=== PATIENT | female | born 1940 | race Caucasian/White ===

== ENCOUNTER → 2016-04-26 | Outpatient (CLI) | payer MEDICARE, OTHER | LOC: PCVCCLINIC 14:00 | PROVIDERS: ATTEND Internal Medicine Cardiovascular Disease | DX: I27.2 Other secondary pulmonary hypertension (principal); I42.9 Cardiomyopathy, unspecified; I50.9 Heart failure, unspecified; R06.00 Dyspnea, unspecified; R42 Dizziness and giddiness; I34.0 Nonrheumatic mitral (valve) insufficiency; E78.00 Pure hypercholesterolemia, unspecified; Z95.810 Presence of automatic (implantable) cardiac defibrillator | CPT/HCPCS: 80061; 93005; G0463 ==

== ENCOUNTER → 2016-07-10 | Outpatient (CLI) | payer MEDICARE, OTHER | END | disposition home or self-care (01) | LOC: PCVCIMAG 13:06 | PROVIDERS: ATTEND Internal Medicine Cardiovascular Disease | DX: I42.9 Cardiomyopathy, unspecified (principal); I50.9 Heart failure, unspecified; I10 Essential (primary) hypertension; R42 Dizziness and giddiness; E78.00 Pure hypercholesterolemia, unspecified; I34.0 Nonrheumatic mitral (valve) insufficiency; I42.1 Obstructive hypertrophic cardiomyopathy; I38 Endocarditis, valve unspecified; Z95.810 Presence of automatic (implantable) cardiac defibrillator | CPT/HCPCS: 93306; G0463 ==

== ENCOUNTER → 2016-11-20 | Outpatient (CLI) | payer MEDICARE, OTHER | END | disposition home or self-care (01) | LOC: PCVCCLINIC 16:16 | PROVIDERS: ATTEND Internal Medicine Cardiovascular Disease | DX: I42.1 Obstructive hypertrophic cardiomyopathy (principal); I11.0 Hypertensive heart disease with heart failure; I50.30 Unspecified diastolic (congestive) heart failure; I34.0 Nonrheumatic mitral (valve) insufficiency; E78.00 Pure hypercholesterolemia, unspecified; Z95.810 Presence of automatic (implantable) cardiac defibrillator; Z79.82 Long term (current) use of aspirin; Z88.8 Allergy status to other drugs, medicaments and biological substances | CPT/HCPCS: 80061; 93280; G0463 ==

== ENCOUNTER → 2017-01-25 | Outpatient (CLI) | payer MEDICARE, OTHER ==
--- NOTE | 2017-01-25 11:44 | PCVCIMAG ---
APPROVED REPORT Study performed: 01/25/2017 10:14:18 EXAM: Comprehensive 2D, Doppler, and color-flow Echocardiogram Patient Location: Echo lab Status: routine BSA: 1.98 HR: 60 bpmBP: 114/78 mmHg Rhythm: Pacemaker Other Information Study Quality: Fair Indications Congestive Heart Failure Dyspnea Pacemaker Cardiomyopathy Hypertension/HDD 2D Dimensions LVEF(%): 35.24 (>50%) IVSd: 9.26 (7-11mm)LVOT Diam: 20.56 (18-24mm) LVDd: 56.77 mm PWd: 10.28 (7-11mm)Ascending Ao: 32.13 (22-36mm) LVDs: 47.06 (25-40mm) Left Atrium: 42.82 (27-40mm) Aortic Root: 26.65 mm LV Single Plane 4CH: 61.71 % [place]'s LVEF: 35.24 % Volumes Left Atrial Volume (Systole) Single Plane 4CH: 176.27 mLSingle Plane 2CH: 65.40 mL Biplane LA Volume: 118.00 mLLA ESV Index: 60.00 mL/m2 Aortic Valve AoV Peak Marc.: 1.67 m/s AO Peak Gr.: 11.31 mmHgLVOT Max P.25 mmHg LVOT Mean P.13 mmHg LVOT Max V: 1.23 m/s LVOT Mean V: 0.95 m/s LVOT V1 VTI: 29.31 cm IKE Vmax: 2.46 cm2 AI Vmax: 3.37 m/sSV (LVOT): 97.23 mL AI [place]: 1.49 m/s2 AI PHT: 656.96 ms Mitral Valve E/A Ratio: 5.2 MV Decel. Time: 236.37 ms MV E Max Marc.: 1.83 m/s MV A Marc.: 0.35 m/s MV Max Marc.: 4.44 m/s MV Mean Mrac.: 3.32 m/s MV PHT: 62.78 ms MVA (PHT): 3.50 cm2 IVRT: 69.20 ms TDI E/Lateral E': 30.50E/Medial E': 30.50 Medial E' Marc.: 0.06 m/s Lateral E' Marc.: 0.06 m/s Pulmonary Valve PV Peak Marc.: 0.79 m/sPV Peak Gr.: 2.51 mmHg Tricuspid Valve TR Peak Marc.: 2.99 m/s TR Peak Gr.: 35.69 mmHg TV Vmax: 0.51 m/sPA Pressure: 46.00 mmHg Left Ventricle Left ventricle is borderline dilated. There is normal LV segmental wall motion. Borderline concentric left ventricular hypertrophy. Left ventricular systolic function is normal. LVEF is 60-65%. Grade I - abnormal relaxation pattern. Right Ventricle The right ventricle is normal size. The right ventricular systolic function is normal. Atria Left atrium is severely dilated. Right atrium is moderately dilated. Pacemaker lead is present in the right atrium. Aortic Valve Aortic valve is trileaflet. Mild aortic valve sclerosis. Moderate aortic regurgitation. There is no aortic valvular stenosis. Mitral Valve The mitral valve is normal in structure. Moderate to swevere mitral regurgitation. No evidence of mitral valve stenosis. Tricuspid Valve The tricuspid valve is normal in structure. Moderate tricuspid regurgitation with a PA pressure of 46-50 mmHg. Pulmonic Valve The pulmonary valve is normal in structure. Mild pulmonic regurgitation. Great Vessels The aortic root is normal in size. The ascending aorta is normal in size. IVC is dilated and collapses <50% with inspiration. Pericardium There is no pericardial effusion. There is no pleural effusion. <Conclusion> Left ventricle is borderline dilated. Borderline concentric left ventricular hypertrophy. LVEF is 60-65%. Grade I - abnormal relaxation pattern. The right ventricle is normal size. Left atrium is severely dilated. Right atrium is moderately dilated. Pacemaker lead is present in the right atrium. Aortic valve is trileaflet. Mild aortic valve sclerosis. There is no aortic valvular stenosis. Moderate to swevere mitral regurgitation. Moderate tricuspid regurgitation with a PA pressure of 46-50 mmHg. IVC is dilated and collapses <50% with inspiration. There is no pericardial effusion.
== END | disposition home or self-care (01) ==
LOC: PCVCIMAG 10:16
PROVIDERS: ATTEND Internal Medicine Cardiovascular Disease
DX: I08.3 Combined rheumatic disorders of mitral, aortic and tricuspid valves (principal); I42.2 Other hypertrophic cardiomyopathy; E78.5 Hyperlipidemia, unspecified; I11.0 Hypertensive heart disease with heart failure; I50.30 Unspecified diastolic (congestive) heart failure; Z95.810 Presence of automatic (implantable) cardiac defibrillator; Z79.82 Long term (current) use of aspirin; Z79.899 Other long term (current) drug therapy; Z88.8 Allergy status to other drugs, medicaments and biological substances
CPT/HCPCS: 80061; 93306; G0463

== ENCOUNTER → 2017-06-04 | Outpatient (CLI) | payer MEDICARE, OTHER | END | disposition home or self-care (01) | LOC: PCVCCLINIC 14:56 | DX: I10 Essential (primary) hypertension (principal); I42.9 Cardiomyopathy, unspecified; I34.0 Nonrheumatic mitral (valve) insufficiency; E78.00 Pure hypercholesterolemia, unspecified; Z95.810 Presence of automatic (implantable) cardiac defibrillator; Z79.899 Other long term (current) drug therapy; Z79.82 Long term (current) use of aspirin | CPT/HCPCS: 80061; 93005; G0463 ==

== ENCOUNTER → 2017-12-10 | Outpatient (CLI) | payer MEDICARE, OTHER ==
--- NOTE | 2017-12-10 15:00 | PCVCIMAG ---
APPROVED REPORT Study performed: 12/10/2017 13:06:09 EXAM: Comprehensive 2D, Doppler, and color-flow Echocardiogram Patient Location: Echo lab Status: routine BSA: 1.91 HR: 60 bpmBP: 98/60 mmHg Rhythm: NSR Other Information Study Quality: Adequate Risk Factors: Cardiac Risk Factors: HTN, Hyperlipidemia Indications Pulmonary Hypertension Cardiomyopathy AICD/Pacemaker Mitral Regurgitation 2D Dimensions LVEF(%): 70.00 (>50%) IVSd: 11.23 (7-11mm)LVOT Diam: 21.00 (18-24mm) LVDd: 46.14 mm PWd: 10.63 (7-11mm)Ascending Ao: 30.01 (22-36mm) LVDs: 26.50 (25-40mm) Left Atrium: 45.50 (27-40mm) Aortic Root: 28.21 mm LV Single Plane 4CH: 66.27 % LV Single Plane 2CH: 70.49 %[place]'s LVEF: 68.38 % Volumes Left Atrial Volume (Systole) Single Plane 4CH: 125.30 mLSingle Plane 2CH: 102.22 mL LA ESV Index: 62.00 mL/m2 Aortic Valve AoV Peak Marc.: 1.59 m/s AO Peak Gr.: 10.34 mmHgLVOT Max P.54 mmHg LVOT Max V: 1.06 m/s IKE Vmax: 2.30 cm2 AI Vmax: 3.13 m/s AI [place]: 1.46 m/s2 AI PHT: 625.65 ms Mitral Valve E/A Ratio: 3.1 MV Decel. Time: 298.38 ms MV E Max Marc.: 1.50 m/s MV A Marc.: 0.49 m/s MV PHT: 86.53 ms IVRT: 48.44 ms TDI E/Lateral E': 37.50E/Medial E': 30.00 Medial E' Marc.: 0.05 m/s Lateral E' Marc.: 0.04 m/s Pulmonary Valve PV Peak Marc.: 0.91 m/sPV Peak Gr.: 3.30 mmHg UT End Vmax: 1.46 m/s Pulmonary Vein P Vein S: 0.46 m/sP Vein A: 0.22 m/s P Vein D: 0.61 m/sP Vein A Dur.: 103.8 msec P Vein S/D Ratio: 0.75 Tricuspid Valve TR Peak Marc.: 3.27 m/sRAP Estimate: 7.00 mmHg TR Peak Gr.: 42.86 mmHg PA Pressure: 50.00 mmHg Left Ventricle The left ventricle is normal size. There is normal LV segmental wall motion. Mild concentric left ventricular hypertrophy. Left ventricular systolic function is normal. The left ventricular ejection fraction is within the normal range. LVEF is 65-70%. The left ventricular diastolic function is normal. Right Ventricle The right ventricle is normal size. The right ventricular systolic function is normal. Pacemaker lead is present in the right ventricle. Atria Left atrium is severely dilated. Right atrium is dilated. Aortic Valve The Aortic valve is sclerotic. Mild to moderate aortic regurgitation. There is no aortic valvular stenosis. Mitral Valve There is mitral annular calcification. Moderate mitral regurgitation. No evidence of mitral valve stenosis. Tricuspid Valve The tricuspid valve is normal in structure. Mild to moderate tricuspid regurgitation. Pulmonary artery pressure is 50 mmHg. Pulmonic Valve The pulmonary valve is normal in structure. Mild pulmonic regurgitation. Great Vessels The aortic root is normal in size. IVC is normal in size and collapses >50% with inspiration. Pericardium There is no pericardial effusion. <Conclusion> The left ventricle is normal size. Mild concentric left ventricular hypertrophy. LVEF is 65-70%. The left ventricular diastolic function is normal. The right ventricle is normal size. Left atrium is severely dilated. Right atrium is dilated. The Aortic valve is sclerotic. Mild to moderate aortic regurgitation. Moderate mitral regurgitation. Mild to moderate tricuspid regurgitation. Pulmonary artery pressure is 50 mmHg. Mild pulmonic regurgitation. There is no pericardial effusion.
== END | disposition home or self-care (01) ==
LOC: PCVCIMAG 17:13
PROVIDERS: ATTEND Internal Medicine Cardiovascular Disease
DX: I08.1 Rheumatic disorders of both mitral and tricuspid valves (principal); I10 Essential (primary) hypertension; I42.9 Cardiomyopathy, unspecified; I42.1 Obstructive hypertrophic cardiomyopathy; E78.00 Pure hypercholesterolemia, unspecified; I47.2 Ventricular tachycardia; Z79.82 Long term (current) use of aspirin
CPT/HCPCS: 80061; 93005; 93282; 93306; G0463

== ENCOUNTER → 2018-06-19 | Outpatient (CLI) | payer MEDICARE, OTHER ==
--- NOTE | 2018-06-19 17:20 | PCVCIMAG ---
APPROVED REPORT Study performed: 06/19/2018 14:41:37 EXAM: Comprehensive 2D, Doppler, and color-flow Echocardiogram Patient Location: Echo lab BSA: 1.91 HR: 83 bpmBP: 108/68 mmHg Rhythm: NSR Other Information Study Quality: Adequate Risk Factors: Cardiac Risk Factors: HTN, Hyperlipidemia Indications Dyspnea AICD Hypertrophic Cardiomyopathy 2D Dimensions IVSd: 14.64 (7-11mm)LVOT Diam: 20.00 (18-24mm) LVDd: 34.68 mm PWd: 14.31 (7-11mm)Ascending Ao: 27.19 (22-36mm) LVDs: 21.87 (25-40mm) Left Atrium: 55.07 (27-40mm) Aortic Root: 29.87 mm Volumes Left Atrial Volume (Systole) Single Plane 4CH: 114.26 mLSingle Plane 2CH: 112.49 mL LA ESV Index: 65.00 mL/m2 Aortic Valve AoV Peak Marc.: 2.49 m/s AO Peak Gr.: 24.93 mmHg AI Vmax: 3.89 m/s AI [place]: 2.16 m/s2 AI PHT: 522.67 ms Pulmonary Valve PV Peak Marc.: 1.26 m/sPV Peak Gr.: 6.35 mmHg Tricuspid Valve TR Peak Marc.: 2.89 m/sRAP Estimate: 7.00 mmHg TR Peak Gr.: 33.41 mmHg PA Pressure: 40.00 mmHg Left Ventricle The left ventricle is normal size. There is normal LV segmental wall motion. Mild to moderate concentric left ventricular hypertrophy. The left ventricular systolic function is normal. The left ventricular ejection fraction is within the normal range. Increased velocity gradient of 25mmHg in outflow tract. LVEF is 60-65%. This study is not technically sufficient to allow evaluation of the LV diastolic function. Right Ventricle The right ventricle is normal size. The right ventricular systolic function is normal. Pacemaker lead is present in the right ventricle. Atria Left atrium is severely dilated. The right atrium size is normal. Aortic Valve The Aortic valve is sclerotic. Mild to moderate aortic regurgitation. There is no aortic valvular stenosis. Mitral Valve There is mitral annular calcification. Mild to moderate mitral regurgitation. No evidence of mitral valve stenosis. Tricuspid Valve The tricuspid valve is normal in structure. Mild tricuspid regurgitation. Pulmonary artery pressure is 40 mmHg. Mild pulmonary hypertension. Pulmonic Valve The pulmonary valve is normal in structure. Trace pulmonic regurgitation. Great Vessels The aortic root is normal in size. IVC is normal in size and collapses >50% with inspiration. Pericardium There is no pericardial effusion. <Conclusion> The left ventricle is normal size. Mild to moderate concentric left ventricular hypertrophy. LVEF is 60-65%. This study is not technically sufficient to allow evaluation of the LV diastolic function. The right ventricle is normal size. Left atrium is severely dilated. Pacemaker lead is present in the right ventricle. The Aortic valve is sclerotic. Mild to moderate aortic regurgitation. There is mitral annular calcification. Mild to moderate mitral regurgitation. Mild tricuspid regurgitation. Pulmonary artery pressure is 40 mmHg. Mild pulmonary hypertension. The aortic root is normal in size. There is no pericardial effusion.
== END | disposition home or self-care (01) ==
LOC: PCVCIMAG 13:42
PROVIDERS: ATTEND Internal Medicine Cardiovascular Disease
DX: I08.3 Combined rheumatic disorders of mitral, aortic and tricuspid valves (principal); I27.20 Pulmonary hypertension, unspecified; R42 Dizziness and giddiness; R06.02 Shortness of breath; I10 Essential (primary) hypertension; I42.1 Obstructive hypertrophic cardiomyopathy; E78.00 Pure hypercholesterolemia, unspecified; I47.2 Ventricular tachycardia; R53.1 Weakness; Z95.810 Presence of automatic (implantable) cardiac defibrillator
CPT/HCPCS: 93283; 93306; G0463

== ENCOUNTER → 2018-06-19 | Outpatient (CLI) | payer MEDICARE, OTHER | END | disposition home or self-care (01) | LOC: PCVCCLINIC 13:48 | PROVIDERS: ATTEND Internal Medicine Cardiovascular Disease | DX: I42.9 Cardiomyopathy, unspecified (principal); R42 Dizziness and giddiness; R06.02 Shortness of breath; I34.0 Nonrheumatic mitral (valve) insufficiency; I42.1 Obstructive hypertrophic cardiomyopathy; E78.00 Pure hypercholesterolemia, unspecified; I47.2 Ventricular tachycardia; R53.1 Weakness; I11.0 Hypertensive heart disease with heart failure; I50.9 Heart failure, unspecified; Z95.810 Presence of automatic (implantable) cardiac defibrillator | CPT/HCPCS: 93283; G0463 ==

== ENCOUNTER → 2018-07-26 | Outpatient (CLI) | payer MEDICARE, OTHER | END | disposition home or self-care (01) | LOC: PCVCCLINIC 13:30 | PROVIDERS: ATTEND Internal Medicine Cardiovascular Disease | DX: I48.91 Unspecified atrial fibrillation (principal); I42.9 Cardiomyopathy, unspecified; I10 Essential (primary) hypertension; I34.0 Nonrheumatic mitral (valve) insufficiency; I42.1 Obstructive hypertrophic cardiomyopathy; I47.2 Ventricular tachycardia; D68.59 Other primary thrombophilia; Z95.810 Presence of automatic (implantable) cardiac defibrillator; Z79.899 Other long term (current) drug therapy | CPT/HCPCS: 93005; 93283; G0463 ==

== ENCOUNTER → 2018-08-05 | Outpatient (CLI) | payer MEDICARE, OTHER | END | disposition home or self-care (01) | LOC: PCVCCLINIC 13:59 | PROVIDERS: ATTEND Internal Medicine Cardiovascular Disease | DX: I48.0 Paroxysmal atrial fibrillation (principal); I42.9 Cardiomyopathy, unspecified; I11.0 Hypertensive heart disease with heart failure; I50.9 Heart failure, unspecified; I34.0 Nonrheumatic mitral (valve) insufficiency; I47.2 Ventricular tachycardia; E78.00 Pure hypercholesterolemia, unspecified; Z95.810 Presence of automatic (implantable) cardiac defibrillator; Z88.8 Allergy status to other drugs, medicaments and biological substances | CPT/HCPCS: 36415; 80061; 93283; G0463 ==

== ENCOUNTER → 2018-10-02 | Outpatient (CLI) | payer MEDICARE, OTHER | END | disposition home or self-care (01) | LOC: PCVCCLINIC 14:31 | PROVIDERS: ATTEND Internal Medicine Cardiovascular Disease | DX: I42.9 Cardiomyopathy, unspecified (principal); E78.00 Pure hypercholesterolemia, unspecified; J96.21 Acute and chronic respiratory failure with hypoxia; J44.9 Chronic obstructive pulmonary disease, unspecified; I11.0 Hypertensive heart disease with heart failure; I50.9 Heart failure, unspecified; I42.1 Obstructive hypertrophic cardiomyopathy; C50.911 Malignant neoplasm of unspecified site of right female breast; C50.912 Malignant neoplasm of unspecified site of left female breast; Z95.810 Presence of automatic (implantable) cardiac defibrillator; Z88.8 Allergy status to other drugs, medicaments and biological substances | CPT/HCPCS: 36415; 80061; 93283; G0463 ==

== ENCOUNTER → 2018-10-16 | Outpatient (CLI) | payer MEDICARE, OTHER ==
--- NOTE | 2018-10-16 17:33 | PCVCIMAG ---
APPROVED REPORT Study performed: 10/16/2018 16:09:00 EXAM: Comprehensive 2D, Doppler, and color-flow Echocardiogram Patient Location: Echo lab Room #: [id number]: routine BSA: 1.81 HR: 105 bpmBP: 102/70 mmHg Rhythm: Atrial Fibrillation Other Information Study Quality: Fair Risk Factors: Cardiac Risk Factors: HTN, Hyperlipidemia Indications Mitral Valve Disease Pulmonary Hypertension Atrial Fibrillation Pacemaker Cardiomyopathy Hypertrophic CM, 2D Dimensions IVSd: 15.16 (7-11mm)LVOT Diam: 20.36 (18-24mm) LVDd: 28.97 mm PWd: 14.04 (7-11mm) LVDs: 18.44 (25-40mm) Left Atrium: 47.69 (27-40mm) Aortic Root: 30.87 mm LV Single Plane 4CH: 48.75 % LV Single Plane 2CH: 50.95 % Biplane EF: 48.3 % Volumes Left Atrial Volume (Systole) Single Plane 4CH: 115.24 mLSingle Plane 2CH: 122.93 mL Biplane LA Volume: 132.00 mLLA ESV Index: 72.00 mL/m2 Aortic Valve AoV Peak Marc.: 1.84 m/s AO Peak Gr.: 13.49 mmHgLVOT Max P.33 mmHg LVOT Max V: 1.23 m/s IKE Vmax: 2.18 cm2 Mitral Valve MV E Max Marc.: 1.14 m/s MV VTI: 211.30 mm IVRT: 72.66 ms Pulmonary Valve PV Peak Marc.: 0.90 m/sPV Peak Gr.: 3.27 mmHg Tricuspid Valve TR Peak Marc.: 2.80 m/s TR Peak Gr.: 31.33 mmHg TV Vmax: 1.01 m/sPA Pressure: 38.00 mmHg Left Ventricle The left ventricle is normal size. Regional wall motion is not well visualized but grossly normal. Mild to moderate concentric left ventricular hypertrophy. Left ventricular systolic function is mildly decreased. LVEF is 45-50%. This study is not technically sufficient to allow evaluation of the LV diastolic function due to atrial fibrillation. Right Ventricle The right ventricle is normal size. The right ventricular systolic function is normal. Atria Left atrium is severely dilated. Pacemaker lead is present in the right atrium. Aortic Valve Aortic valve is trileaflet. Mild aortic valve sclerosis. No aortic regurgitation is present. There is no aortic valvular stenosis. Mitral Valve Moderate mitral annular calcification. Mitral valve leaflets open well. Moderate mitral regurgitation. No evidence of mitral valve stenosis. Tricuspid Valve The tricuspid valve is normal in structure. Mild to moderate tricuspid regurgitation with a PA pressure of 38 mmHg. Mild pulmonary hypertension. Pulmonic Valve The pulmonary valve is normal in structure. There is no pulmonic valvular regurgitation. Great Vessels The aortic root is normal in size. Ascending aorta is not well visualized. Aortic arch is normal in caliber. IVC is normal in size and collapses >50% with inspiration. Pericardium There is no pericardial effusion. There is no pleural effusion. <Conclusion> The left ventricle is normal size. Mild to moderate concentric left ventricular hypertrophy. Left ventricular systolic function is mildly decreased. LVEF is 45-50%. This study is not technically sufficient to allow evaluation of the LV diastolic function due to atrial fibrillation. The right ventricle is normal size. Left atrium is severely dilated. Pacemaker lead is present in the right atrium. Aortic valve is trileaflet. Mild aortic valve sclerosis. Moderate mitral annular calcification. Mitral valve leaflets open well. Moderate mitral regurgitation. Mild to moderate tricuspid regurgitation with a PA pressure of 38 mmHg. Mild pulmonary hypertension. The aortic root is normal in size. Ascending aorta is not well visualized. Aortic arch is normal in caliber. There is no pericardial effusion.
== END | disposition home or self-care (01) ==
LOC: PCVCIMAG 14:45
PROVIDERS: ATTEND Internal Medicine Cardiovascular Disease
DX: I08.3 Combined rheumatic disorders of mitral, aortic and tricuspid valves (principal); I42.1 Obstructive hypertrophic cardiomyopathy; I48.0 Paroxysmal atrial fibrillation; I11.0 Hypertensive heart disease with heart failure; I50.9 Heart failure, unspecified; J44.9 Chronic obstructive pulmonary disease, unspecified; Z88.6 Allergy status to analgesic agent
CPT/HCPCS: 36415; 80061; 93283; 93306; G0463